=== PATIENT | female | born 1945 | race Caucasian/White ===

== ENCOUNTER 2018-03-01 18:01 | Emergency (ER) | payer MEDICARE, BC | END 2018-03-01 21:45 | disposition home or self-care (01) | LOC: FTE 18:01 | DX: S52.501A Unspecified fracture of the lower end of right radius, initial encounter for closed fracture (principal); W01.0XXA Fall on same level from slipping, tripping and stumbling without subsequent striking against object, initial encounter; Y92.007 Garden or yard of unspecified non-institutional (private) residence as the place of occurrence of the external cause | CPT/HCPCS: 29125; 73110-RT; 73130-RT; 99283-25 ==